=== PATIENT | female | born 1975 | race Caucasian/White ===

== ENCOUNTER 2017-10-12 11:46 | Emergency (ER) | payer BC ==
[2017-10-12] MEDS ORDERED: NA CHLORIDE 0.9% 1,000 ML ONE (12:38)
[2017-10-12] MEDS ORDERED: KETOROLAC 30 MG/ML INJ ONE (12:38)
[2017-10-12 12:44] LABS: Hematocrit 34.3 % (36.0-45.0); RBC Red Blood Cell Count 3.93 M/uL (3.86-4.86)
[2017-10-12 12:45] LABS: Absolute Monocytes 0.5 K/uL (0.1-1.3); Absolute Neutrophil 11.4 K/uL (1.8-8.0); Basophils % 0.3 % (0-1.3); Eosinophils % 0.7 % (0-4.4); Lymphocytes % 7.3 % (15.3-44.8); MCH 28.7 pg (27.0-35.0); MCV 87.3 fL (80-100); MPV 8.1 fL (7.6-11.3)
[2017-10-12 12:57] LABS: Urine Bacteria 20-50 /HPF (<20); Urine Culture Reflex Order REFLEXED; Urine Mucus 1+ /HPF (NONE SEEN); Urine RBC 20-50 /HPF (NONE SEEN)
[2017-10-12 12:57] LABS: ALT/SGPT 23 U/L (12-78); AST/SGOT 20 U/L (15-37); Alkaline Phosphatase 129 U/L (45-117); Amylase Level 20 U/L (25-115); BUN Blood Urea Nitrogen 14 mg/dL (7-18); Bicarbonate 27 mmol/L (21-32); Bilirubin Direct < 0.1 mg/dL (0-0.2); Bilirubin Total 0.2 mg/dL (0.2-1.0); Glucose Level 100 mg/dL (74-106); Lipase 45 U/L (73-393); Potassium 4.1 mmol/L (3.5-5.1); Protein, Total 7.1 g/dL (6.4-8.2); Sodium Level 141 mmol/L (136-145)
[2017-10-12 12:58] LABS: Urine Blood 2+ (NEG); Urine Glucose NEGATIVE (NEG); Urine Protein NEGATIVE (NEG); Urine Specific Gravity >1.030 (1.005-1.030); Urine pH 5.5 (5.0-7.0)
--- NOTE | 2017-10-12 13:57 | RAD REPORT ---
EXAM DESCRIPTION: CT - Abdomen Pelvis W Contrast - 10/12/2017 1:33 pm CLINICAL HISTORY: Left flank pain, history of gastric sleeve procedure COMPARISON: None. TECHNIQUE: Biphasic, helical CT imaging of the abdomen and pelvis was performed following 100 ml non -ionic IV contrast. No oral contrast administered. All CT scans are performed using dose optimization technique as appropriate and may include automated exposure control or mA/KV adjustment according to patient size. FINDINGS: No suspicious findings in the lung bases. The liver and spleen show no suspicious findings. Gallbladder is contracted. Gallstones can be occult . An acute gallbladder process is doubtful. No biliary tree dilatation. There is extensive fatty infi ltration into the pancreatic parenchyma with little pancreatic tissue remaining. Mild left-sided hydronephrosis present. The patient has a duplicated left collecting system. The dupl ication extends to at least the pelvic inlet. A 1-2 millimeter calcification is present at the left U VJ. Both left-sided ureter show mild dilatation indicating that there is a single insertion into the bladder. No right-sided hydronephrosis. No nonobstructing calculi seen. The left-sided stone does not cause si gnificant delay in function on the left. There is an additional 5 millimeter parenchymal calcificatio n on the left. No perinephric stranding. Urinary bladder is fully contracted limiting assessment. No uterine abnormality. Both ovaries are enlarged measuring 6 point 9 x 4.3 on the right and 6.7 x 3. 9 on the left. Both show evidence for multiple cysts. Ovaries are larger than expected for age. As cl inical findings warrant, a followup nonemergent pelvic ultrasound could be performed for further linn acterization. Gastric sleeve surgical changes are noted. Patient has a small hiatal hernia containing approximately 10% of the stomach. No dilated large or small bowel. No acute GI process identifiable. No free air, free fluid or inflammatory stranding. No hernia, mass or bulky lymphadenopathy. No adre nal abnormality. No suspicious bony findings. IMPRESSION: Approximately 1-2 mm left UVJ calculus causing left-sided hydronephrosis. Patient has a duplicated left collecting system to at least the pelvic inlet level. Both ureters show mild hydronephrosis indicating a single common insertion into the bladder. Enlarged ovaries suspected to be multi-cystic. Followup nonemergent pelvic ultrasound could be perfor med for further characterization. Extensive fatty infiltration into the pancreatic parenchyma with little pancreatic tissue still ident ifiable.
[2017-10-12] MEDS ORDERED: AZITHROMYCIN 250 MG TAB ONE (14:19)
[2017-10-12 14:23] LABS: Blood Morphology Comment NOT SEEN (NOT SEEN); Platelet Estimate ADEQ; Urine White Blood Cell Casts OK
--- NOTE | 2017-10-12 14:38 | EDPHYS ---
Physician Documentation [facility] Name: Mitzy Chris Age: 42 yrs Sex: Female : 1975 Arrival Date: 10/12/2017 Time: 11:49 Bed 20 Private MD: None, None ED Physician Avtar Pina HPI: 10/12 12:17 This 42 yrs old Female presents to ER via Wheelchair with complaints of snw Abdominal Pain, Nausea/Vomiting/Diarrhea. 12:17 The patient presents with abdominal pain in the left lower quadrant. Onset: The snw symptoms/episode began/occurred suddenly, 5 day(s) ago, and became persistent. The symptoms do not radiate. Associated signs and symptoms: Pertinent positives: nausea and vomiting, diarrhea. The symptoms are described as crampy, sharp. Severity of pain: At its worst the pain was moderate severe. The patient has not experienced similar symptoms in the past. The patient has been recently seen by a physician: High risk fertility specialist. 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 - Social history:: Smoking status: Patient/guardian denies using tobacco. - Ebola Screening: : Patient negative for fever greater than or equal to 101.5 degrees Fahrenheit, and additional compatible Ebola Virus Disease symptoms Patient denies exposure to infectious person Patient denies travel to an Ebola-affected area in the 21 days before illness onset No symptoms or risks identified at this time. ROS: 12:11 Constitutional: Negative for fever, chills, and weight loss, Eyes: Negative for injury, snw pain, redness, and discharge, ENT: Negative for injury, pain, and discharge, Neck: Negative for injury, pain, and swelling, Cardiovascular: Negative for chest pain, palpitations, and edema, Respiratory: Negative for shortness of breath, cough, wheezing, and pleuritic chest pain, Back: Negative for injury and pain, : Negative for injury, bleeding, discharge, and swelling, MS/Extremity: Negative for injury and deformity, Skin: Negative for injury, rash, and discoloration, Neuro: Negative for headache, weakness, numbness, tingling, and seizure. 12:11 Abdomen/GI: Positive for abdominal pain, nausea, vomiting, diarrhea, of the left lower quadrant. Exam: 12:09 Constitutional: This is a well developed, obese patient who is awake, alert, and in no snw acute distress. Head/Face: Normocephalic, atraumatic. Eyes: Pupils equal round and reactive to light, extra-ocular motions intact. Lids and lashes normal. Conjunctiva and sclera are non-icteric and not injected. Cornea within normal limits. Periorbital areas with no swelling, redness, or edema. ENT: Nares patent. No nasal discharge, no septal abnormalities noted. Tympanic membranes are normal and external auditory canals are clear. Oropharynx with no redness, swelling, or masses, exudates, or evidence of obstruction, uvula midline. Mucous membranes moist. Neck: Trachea midline, no thyromegaly or masses palpated, and no cervical lymphadenopathy. Supple, full range of motion without nuchal rigidity, or vertebral point tenderness. No Meningismus. Chest/axilla: Normal chest wall appearance and motion. Nontender with no deformity. No lesions are appreciated. Cardiovascular: Regular rate and rhythm with a normal S1 and S2. No gallops, murmurs, or rubs. Normal PMI, no JVD. No pulse deficits. Respiratory: Lungs have equal breath sounds bilaterally, clear to auscultation and percussion. No rales, rhonchi or wheezes noted. No increased work of breathing, no retractions or nasal flaring. Back: No spinal tenderness. No costovertebral tenderness. Full range of motion. Skin: Warm, dry with normal turgor. Normal color with no rashes, no lesions, and no evidence of cellulitis. MS/ Extremity: Pulses equal, no cyanosis. Neurovascular intact. Full, normal range of motion. Neuro: Awake and alert, GCS 15, oriented to person, place, time, and situation. Cranial nerves II-XII grossly intact. Motor strength 5/5 in all extremities. Sensory grossly intact. Cerebellar exam normal. Normal gait. Psych: Awake, alert, with orientation to person, place and time. Behavior, mood, and affect are within normal limits. 12:09 Abdomen/GI: Inspection: obese Bowel sounds: normal, Palpation: moderate abdominal tenderness, in the left lower quadrant. Vital Signs: 11:56 BP 132 / 82; Pulse 74; Resp 19; Temp 97.0; Pulse Ox 100% on R/A; Weight 131.54 kg; aj Height 5 ft. 5 in. (165.10 cm); 14:03 BP 121 / 75; Pulse 78; Resp 16; Pulse Ox 100% on R/A; mb3 11:56 Body Mass Index 48.26 (131.54 kg, 165.10 cm) aj MDM: 12:03 Patient medically screened. [facility] 14:45 Data reviewed: vital signs, nurses notes. Data interpreted: Pulse oximetry: on room air snw is 100 %. Interpretation: normal. Counseling: I had a detailed discussion with the patient and/or guardian regarding: the historical points, exam findings, and any diagnostic results supporting the discharge/admit diagnosis, lab results, radiology results, the need for outpatient follow up, to return to the emergency department if symptoms worsen or persist or if there are any questions or concerns that arise at home. Special discussion: Based on the patient's Hx, exam, and Dx evaluation, there is no indication for emergent surgery or inpatient Tx. It is understood by the patient/guardian that if the Sx's persist or worsen they need to return immediately for re-evaluation. Based on the history and exam findings, there is no indication for further emergent testing or inpatient evaluation. I discussed with the patient/guardian the need to see the track rider for further evaluation of the symptoms. I discussed with the patient/guardian the need to see the primary care provider for further evaluation of the symptoms. 10/12 12:17 Order name: Amylase, Serum; Complete Time: 13:00 snw 10/12 12:17 Order name: Basic Metabolic Panel; Complete Time: 13:00 snw 10/12 12:17 Order name: CBC with Diff; Complete Time: 14:27 snw 10/12 12:17 Order name: Creatinine for Radiology; Complete Time: 13:00 snw 10/12 12:17 Order name: Hepatic Function; Complete Time: 13:00 snw 10/12 12:17 Order name: Lipase; Complete Time: 13:00 snw 10/12 12:17 Order name: Urine Microscopic Only; Complete Time: 13:00 snw 10/12 12:17 Order name: CT Abd/Pelvis - W/Contrast; Complete Time: 14:01 snw 10/12 12:28 Order name: Urine Dipstick--Ancillary (enter results); Complete Time: 13:00 ag 10/12 12:28 Order name: Urine --Ancillary (enter results); Complete Time: 13:00 ag 10/12 12:51 Order name: CBC Smear Scan; Complete Time: 14:27 EDMS 10/12 12:59 Order name: Urine Culture EDMS 10/12 12:17 Order name: IV Saline Lock; Complete Time: 12:33 snw 10/12 12:17 Order name: Labs collected and sent; Complete Time: 12:33 snw 10/12 12:17 Order name: Urine Dipstick-Ancillary (obtain specimen); Complete Time: 12:33 snw 10/12 12:17 Order name: Urine Test (obtain specimen); Complete Time: 12:33 snw Administered Medications: 12:40 Drug: NS 0.9% 1000 ml Route: IV; Rate: 1 bolus; Site: right forearm; mb3 14:57 Follow up: Response: No adverse reaction; IV Status: Completed infusion; IV Intake: mb3 1000ml 12:40 Drug: TORadol 30 mg Route: IVP; Site: right forearm; mb3 14:57 Follow up: Response: No adverse reaction mb3 14:09 CANCELLED (other intervention used): Cipro 500 mg PO once snw 14:21 Drug: Zithromax 500 mg Route: PO; mb3 14:57 Follow up: Response: No adverse reaction mb3 Disposition: 17:10 Co-signature as Attending Physician, Avtar Pina MD. rn Disposition: 10/12/17 14:37 Discharged to Home. Impression: Hydronephrosis with renal and ureteral calculous obstruction, Unspecified abdominal pain. - Condition is Stable. - Discharge Instructions: Abdominal Pain, Adult, Kidney Stones, Hydronephrosis, Dietary Guidelines to Help Prevent Kidney Stones. - Prescriptions for Diclofenac Sodium 75 mg Oral Tablet Sustained Release - take 1 tablet by ORAL route 2 times per day; 30 tablet. Zithromax 500 mg Oral Tablet - take 1 tablet by ORAL route once daily for 5 days; 5 tablet. - Work release form, Medication Reconciliation Form, Thank You Letter, Antibiotic Education, Prescription Opioid Use form. - Follow up: Private Physician; When: 1 - 2 days; Reason: Recheck today's complaints, Continuance of care, Re-evaluation by your physician. Follow up: Emergency Department; When: As needed; Reason: Worsening of condition. Signatures: Dispatcher [employer] EDMacy Busch, Davide Alfaro RN, MD MD cha Therrien, Shelly, BOATING SAFETY OFFICER-C BOATING SAFETY OFFICER-Csnw Avtar Pina MD MD rn Barnett, Mark, RN RN mb3 Corrections: (The following items were deleted from the chart) 14:09 14:03 Cipro 500 mg PO once ordered. snw snw 14:39 14:37 10/12/2017 14:37 Discharged to Home. Impression: Hydronephrosis with renal and snw ureteral calculous obstruction. Condition is Stable. Forms are Medication Reconciliation Form, Thank You Letter, Antibiotic Education, Prescription Opioid Use. Follow up: Private Physician; When: 1 - 2 days; Reason: Recheck today's complaints, Continuance of care, Re-evaluation by your physician. Follow up: Emergency Department; When: As needed; Reason: Worsening of condition. snw 14:59 14:39 10/12/2017 14:37 Discharged to Home. Impression: Hydronephrosis with renal and mb3 ureteral calculous obstruction; Unspecified abdominal pain. Condition is Stable. Forms are Medication Reconciliation Form, Thank You Letter, Antibiotic Education, Prescription Opioid Use. Follow up: Private Physician; When: 1 - 2 days; Reason: Recheck today's complaints, Continuance of care, Re-evaluation by your physician. Follow up: Emergency Department; When: As needed; Reason: Worsening of condition. snw
--- NOTE | 2017-10-12 14:38 | ER ---
Nurse's Notes [facility] Name: Mitzy Chris Age: 42 yrs Sex: Female : 1975 Arrival Date: 10/12/2017 Time: 11:49 Bed 20 Private MD: None, None Diagnosis: Hydronephrosis with renal and ureteral calculous obstruction;Unspecified abdominal pain Presentation: 10/12 11:53 Presenting complaint: Patient states: Left flank pain and pelvic pain with nausea that aj started yesterday. Transition of care: patient was not received from another setting of care. Onset of symptoms was October 11, 2017. Risk Assessment: Do you want to hurt yourself or someone else? Patient reports no desire to harm self or others. Initial Sepsis Screen: Does the patient meet any 2 criteria? No. Patient's initial sepsis screen is negative. Does the patient have a suspected source of infection? No. Patient's initial sepsis screen is negative. Care prior to arrival: None. 11:53 Method Of Arrival: Wheelchair 11:53 Acuity: VINAY 3 aj Triage Assessment: 11:56 General: Appears in no apparent distress. uncomfortable, obese, Behavior is calm, aj cooperative, appropriate for age. Pain: Complains of pain in posterior aspect of left lateral abdomen, anterior aspect of left lateral abdomen and pelvis. Neuro: Level of Consciousness is awake, alert, obeys commands, Oriented to person, place, time, situation, Appropriate for age. Respiratory: Airway is patent Respiratory effort is even, unlabored, Respiratory pattern is regular, symmetrical. GI: Abdomen is non-distended, obese, Reports nausea, vomiting. Derm: Skin is intact, is healthy with good turgor, Skin is pink, warm \T\ dry. normal. 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 - Social history:: Smoking status: Patient/guardian denies using tobacco. - Ebola Screening: : Patient negative for fever greater than or equal to 101.5 degrees Fahrenheit, and additional compatible Ebola Virus Disease symptoms Patient denies exposure to infectious person Patient denies travel to an Ebola-affected area in the 21 days before illness onset No symptoms or risks identified at this time. Screenin:32 Abuse screen: Denies threats or abuse. Nutritional screening: No deficits noted. mb3 Tuberculosis screening: No symptoms or risk factors identified. Fall Risk None identified. Assessment: 12:17 General: Appears in no apparent distress. comfortable, Behavior is calm, cooperative, mb3 appropriate for age. Pain: Denies pain. Neuro: No deficits noted. Cardiovascular: No deficits noted. Respiratory: No deficits noted. GI: No deficits noted. Abdomen is obese, Bowel sounds present X 4 quads. Abd is soft and non tender X 4 quads. Reports pt states did have left flank pain that radiated to groin, has since resolved. Did have nausea during pain. No reports now. : Urine is clear. EENT: No signs and/or symptoms were reported regarding the EENT system. Derm: No signs and/or symptoms reported regarding the dermatologic system. 14:03 Reassessment: Patient appears in no apparent distress at this time. Patient and/or mb3 family updated on plan of care and expected duration. Pain level reassessed. Patient is alert, oriented x 3, equal unlabored respirations, skin warm/dry/pink. Vital Signs: 11:56 BP 132 / 82; Pulse 74; Resp 19; Temp 97.0; Pulse Ox 100% on R/A; Weight 131.54 kg; aj Height 5 ft. 5 in. (165.10 cm); 14:03 BP 121 / 75; Pulse 78; Resp 16; Pulse Ox 100% on R/A; mb3 11:56 Body Mass Index 48.26 (131.54 kg, 165.10 cm) aj ED Course: 11:49 Patient arrived in ED. sb2 11:50 None, None is Private Physician. sb2 11:54 Triage completed. aj 11:56 Arm band placed on left wrist. aj 11:59 Alejandrina Hernandez FNP-C is PHCP. snw 11:59 Avtar Pina MD is Attending Physician. snw 12:16 Cade Ortega RN is Primary Nurse. mb3 12:31 Inserted saline lock: 22 gauge in right forearm, using aseptic technique. Blood mb3 collected. 13:33 CT Abd/Pelvis - W/Contrast In Process Unspecified. EDMS 14:21 Urine Culture Sent. mb3 14:21 CBC Smear Scan Sent. mb3 14:58 No provider procedures requiring assistance completed. IV discontinued, intact, mb3 bleeding controlled, No redness/swelling at site. Pressure dressing applied. 14:59 Patient has correct armband on for positive identification. mb3 Administered Medications: 12:40 Drug: NS 0.9% 1000 ml Route: IV; Rate: 1 bolus; Site: right forearm; mb3 14:57 Follow up: Response: No adverse reaction; IV Status: Completed infusion; IV Intake: mb3 1000ml 12:40 Drug: TORadol 30 mg Route: IVP; Site: right forearm; mb3 14:57 Follow up: Response: No adverse reaction mb3 14:09 CANCELLED (other intervention used): Cipro 500 mg PO once snw 14:21 Drug: Zithromax 500 mg Route: PO; mb3 14:57 Follow up: Response: No adverse reaction mb3 Intake: 14:57 IV: 1000ml; Total: 1000ml. mb3 Outcome: 14:37 Discharge ordered by MD. snw 14:58 Discharged to home ambulatory, with family. mb3 14:58 Condition: stable 14:58 Discharge instructions given to patient, family, Instructed on discharge instructions, follow up and referral plans. medication usage, Demonstrated understanding of instructions, follow-up care, medications, Prescriptions given X 2. 14:59 Patient left the ED. mb3 Signatures: Dispatcher [employer] EDMacy Busch, RN RN Alejandrina Fagan, VAULT CLERK-C VAULT CLERK-Csnw Eileen Aguilar sb2 Cade Ortega, RN RN mb3 Corrections: (The following items were deleted from the chart) 12:41 12:31 Inserted saline lock: 22 gauge in left forearm, using aseptic technique. Blood mb3 collected. mb3
== END 2017-10-12 14:59 | disposition home or self-care (01) ==
LOC: ER 11:46
DX: N13.2 Hydronephrosis with renal and ureteral calculous obstruction (principal); E03.9 Hypothyroidism, unspecified; Z88.0 Allergy status to penicillin; Z88.2 Allergy status to sulfonamides
CPT/HCPCS: 36415; 74177; 80048; 80076; 81003; 81015; 81025; 82150; 83690; 85025; 87086; 87088; 96361; 96374; 99284; J7030; Q9967

== ENCOUNTER 2018-02-01 16:28 | Observation (INO) | payer BC ==
[2018-02-01] MEDS ORDERED: FENTANYL CITR 100 MCG/2 ML ONE (17:16)
[2018-02-01 17:36] LABS: Absolute Lymphocytes (CBC) 1.4 K/uL (0.7-4.9); Absolute Monocytes 0.7 K/uL (0.1-1.3); Absolute Neutrophil 8.4 K/uL (1.8-8.0); Basophils % 0.5 % (0-1.3); Eosinophils % 0.5 % (0-4.4); Hematocrit 34.2 % (36.0-45.0); Lymphocytes % 13.4 % (15.3-44.8); MCV 89.5 fL (80-100); MPV 8.1 fL (7.6-11.3); Monocytes % 6.5 % (3.3-12.3); RBC Red Blood Cell Count 3.82 M/uL (3.86-4.86)
--- NOTE | 2018-02-01 18:05 | RAD REPORT ---
EXAM DESCRIPTION: US - Transvaginal OB - 02/01/2018 5:58 pm CLINICAL HISTORY: ABD CRAMPING, COMPARISON: <Comparisons> FINDINGS: Examination quality is quite limited by body habitus. The uterus measures 8.4 x 6.7 x 5.3 cm. Endometrial stripe is mildly thickened measuring 16 mm withou t evidence of IUP. No significant free fluid or adnexal mass seen. Neither ovary was well identified. IMPRESSION: No finding seen to confirm IUP. In the setting of an elevated HCG level, findings would constitute of unknown location. Follow-up interval sonography and serial HCG level measurem ent is advised.
[2018-02-01 18:11] LABS: BUN Blood Urea Nitrogen 8 mg/dL (7-18); Bicarbonate 21 mmol/L (21-32); Glucose Level 120 mg/dL (74-106); HCG, Quantitative 34349 mIU/mL (1-3); Potassium 4.5 mmol/L (3.5-5.1); Sodium Level 140 mmol/L (136-145)
[2018-02-01] MEDS ORDERED: PROMETHAZINE 25 MG/ML VIAL ONE (18:18)
[2018-02-01 18:33] LABS: Urine Blood 1+ (NEG); Urine Glucose NEGATIVE (NEG); Urine Protein NEGATIVE (NEG); Urine pH 7.5 (5.0-7.0)
[2018-02-01] MEDS ORDERED: NA CHLORIDE 0.9% 1,000 ML ONE ×2 (18:45→22:13)
[2018-02-01] MEDS ORDERED: METHYLERGONOVINE 0.2MG/ML AMP IM ONE (18:46)
[2018-02-01 21:07] LABS: Hematocrit 34.9 % (36.0-45.0)
--- NOTE | 2018-02-01 21:24 | ER ---
Nurse's Notes [facility] Name: Mitzy Chris Age: 42 yrs Sex: Female : 1975 Arrival Date: 02/01/2018 Time: 16:42 Bed 25 Private MD: Diagnosis: Spontaneous -incomplete;Anemia, unspecified Presentation: 02/01 16:42 Presenting complaint: Patient states: Vaginal bleeding that started this morning, aj1 reports that she is 8 weeks . States that she went and saw her OB and was diagnosed with a subchorionic bleed. They did an ultrasound and checked and said the baby was doing well and sent the patient home with an order for bed rest. After she got home the bleeding got heavier with clots. Patient reports that she has saturated 10 pads today. Appears pale. Reports cramping pain to suprapubic area. Transition of care: patient was not received from another setting of care. Onset of symptoms was February 01, 2018. Risk Assessment: Do you want to hurt yourself or someone else? Patient reports no desire to harm self or others. Initial Sepsis Screen: Does the patient meet any 2 criteria? No. Patient's initial sepsis screen is negative. Does the patient have a suspected source of infection? No. Patient's initial sepsis screen is negative. Care prior to arrival: None. 16:42 Method Of Arrival: EMS: [facility] 16:42 Acuity: VINAY 2 aj1 Triage Assessment: 16:50 General: Appears in no apparent distress. uncomfortable, Behavior is calm, cooperative, aj1 appropriate for age. Pain: Complains of pain in suprapubic area. Neuro: Level of Consciousness is awake, alert, obeys commands. Cardiovascular: Patient's skin is warm and dry. Respiratory: Airway is patent Respiratory effort is even, unlabored, Respiratory pattern is regular, symmetrical. : Reports vaginal bleeding that is bright red, with clots, heavy flow. 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 - Social history:: Smoking status: Patient/guardian denies using tobacco. - Ebola Screening: : Patient denies travel to an Ebola-affected area in the 21 days before illness onset. Screenin:55 Abuse screen: Denies threats or abuse. Denies injuries from another. Nutritional aj1 screening: No deficits noted. Tuberculosis screening: No symptoms or risk factors identified. 02/02 00:19 Fall Risk None identified. rv Assessment: 02/01 16:55 Obstetrical Assessment: Patient reports vaginal bleeding. General: Appears in no aj1 apparent distress. uncomfortable, Behavior is calm, cooperative, appropriate for age. Pain: Complains of pain in suprapubic area Pain does not radiate. Pain currently is 8 out of 10 on a pain scale. Quality of pain is described as crampy, Is continuous, Aggravated by repositioning. Neuro: Level of Consciousness is awake, alert, obeys commands. Cardiovascular: Patient's skin is warm and dry. Respiratory: Airway is patent Respiratory effort is even, unlabored, Respiratory pattern is regular, symmetrical. GI: No signs and/or symptoms were reported involving the gastrointestinal system. : Reports vaginal bleeding that is bright red, with clots, heavy flow. Derm: Skin is pale. 19:00 Reassessment: Patient appears in no apparent distress at this time. Patient and/or rv family updated on plan of care and expected duration. Pain level reassessed. 21:06 Reassessment: Patient appears in no apparent distress at this time. Patient and/or rv family updated on plan of care and expected duration. Pain level reassessed. 23:25 Reassessment: Patient appears in no apparent distress at this time. Patient and/or rv family updated on plan of care and expected duration. Pain level reassessed. Vital Signs: 16:50 BP 104 / 49; Pulse 67; Resp 18; Temp 97.8; Pulse Ox 97% on R/A; Weight 131.54 kg (R); aj1 Height 5 ft. 5 in. (165.10 cm) (R); Pain 8/10; 17:55 BP 114 / 86; Pulse 68; Resp 20; Pulse Ox 100% on R/A; aj1 18:15 BP 107 / 54; Pulse 70; Resp 23; Pulse Ox 98% on R/A; rv 18:45 BP 100 / 66; Pulse 67; Resp 18; Pulse Ox 100% on R/A; rv 19:15 BP 111 / 61; Pulse 70; Resp 14; Pulse Ox 98% on R/A; rv 19:45 BP 121 / 78; Pulse 74; Resp 14; Pulse Ox 100% on R/A; rv 20:15 BP 129 / 75; Pulse 72; Resp 20; Pulse Ox 100% on R/A; rv 22:45 BP 104 / 67; Pulse 87; Resp 17; Pulse Ox 99% on R/A; rv 23:15 BP 129 / 70; Pulse 70; Resp 15; Pulse Ox 98% on R/A; rv 02/02 00:19 BP 120 / 63; Pulse 77; Resp 16; Pulse Ox 98% on R/A; rv 02/01 16:50 Body Mass Index 48.26 (131.54 kg, 165.10 cm) aj ED Course: 02/01 16:42 Patient arrived in ED. aj1 16:45 Triage completed. aj1 16:50 Arm band placed on Patient placed in an exam room. aj1 16:54 Alejandrina Hernandez FNP-C [facility]. snw 16:54 Davide Arzate MD is Attending Physician. sn 16:55 Selma Rosenberg, DEEPIKA is Primary Nurse. aj1 16:55 Patient has correct armband on for positive identification. Bed in low position. Call [facility] light in reach. Side rails up X 1. 16:55 No provider procedures requiring assistance completed. aj1 17:25 Initial lab(s) drawn, by me, sent to lab. Inserted saline lock: 22 gauge in left sv forearm, using aseptic technique. ,using aseptic technique. diffusics Blood collected. 17:32 Roe cath inserted, using sterile technique, 16 Fr., by me, balloon inflated, to sv gravity drainage, returned clear yellow urine. Patient tolerated poorly. 17:58 US Transvaginal Ob In Process Unspecified. EDMS 19:40 Repeat lab(s) drawn. by me, sent to lab. jp3 19:40 Hematocrit Sent. jp3 19:40 Hemoglobin Sent. jp3 21:16 Mitchel Garza MD is Hospitalizing Provider. [facility] 02/02 00:19 Patient admitted, IV remains in place. intact. rv Administered Medications: 02/01 17:15 Drug: NS 0.9% 1000 ml Route: IV; Rate: 1 bolus; Site: left antecubital; ph 18:48 Follow up: IV Status: Completed infusion; IV Intake: 1000ml aj1 17:25 Drug: fentaNYL (PF) 25 mcg Route: IVP; Site: right antecubital; ph 17:40 Follow up: Response: No adverse reaction; Pain is decreased aj1 17:34 Drug: fentaNYL (PF) 25 mcg Route: IVP; Site: left antecubital; hb 17:40 Follow up: Response: No adverse reaction aj1 18:19 CANCELLED (Duplicate Order): Phenergan 6.25 mg IVP once aj1 18:20 Drug: Phenergan 6.25 mg Route: IVP; Site: right antecubital; aj1 18:50 Follow up: Response: No adverse reaction aj1 18:20 Drug: fentaNYL (PF) 25 mcg Route: IVP; Site: right antecubital; aj1 18:50 Follow up: Response: No adverse reaction aj1 18:46 Drug: fentaNYL (PF) 25 mcg Route: IVP; Site: right forearm; aj1 23:25 Follow up: Response: Pain is decreased rv 18:47 Drug: NS 0.9% 1000 ml Route: IV; Rate: 75 ml/hr; Site: right forearm; aj1 23:26 Follow up: IV Status: Infusion continued upon admission rv 18:47 Drug: METHERgine 0.2 mg Route: IM; Site: left gluteus; aj1 23:26 Follow up: Response: No adverse reaction rv 22:21 CANCELLED (Duplicate Order): Pitocin 20 units IV at 125 ml/hr once charline 22:22 CANCELLED (Duplicate Order): NS 0.9% 1000 ml IV at 150 ml/hr continuous; pitocin 20unitscha Intake: 18:48 IV: 1000ml; Total: 1000ml. aj1 Outcome: 21:23 Decision to Hospitalize by Provider. [facility] 02/02 00:18 Admitted to L \T\ D, accompanied by tech, via stretcher, room 279, with chart, Report rv called to JOSE POE Condition: stable Instructed on the need for admit. 00:26 Patient left the ED. rv Signatures: Dispatcher [employer] Selma Buckley RN RN aj1 Manuela Browning RN Davide Jane MD MD cha Therrien, Shelly, [employer]SC[employer] MAINTENANCE INTERNSHIP-C [employer]AND[employer] MAINTENANCE INTERNS[employer]-Csnw Preethi Simmons RN RN Malini Callejas, RN RN Rosendo Nogueira RN RN rv Ziad Vizcaino jp3 Corrections: (The following items were deleted from the chart) 02/01 17:35 16:42 Acuity: VINAY 3 aj1 aj1
--- NOTE | 2018-02-01 21:24 | EDPHYS ---
Physician Documentation [facility] Name: Mitzy Chris Age: 42 yrs Sex: Female : 1975 Arrival Date: 02/01/2018 Time: 16:42 Bed 25 Private MD: ED Physician Davide Arzate HPI: 02/01 18:01 This 42 yrs old Female presents to ER via EMS with complaints of Vaginal snw Bleeding, + Preg <12wks. 18:01 The patient presents to the emergency department with possible uterine contractions, snw extreme, abdominal pain, of the suprapubic area, described as crampy, vaginal bleeding, that is heavy, reports using 10 pads or tampons per day. The estimated gestational age is 8 weeks. course: care: fertility clinic, Leakage of Fluid: none appreciated, Ultrasound: the patient had an ultrasound, which showed moderate subchorionic bleed. Previous pregnancies: the patient has never been . Associated signs and symptoms: Pertinent positives: abdominal pain, vaginal bleeding. The patient has not experienced similar symptoms in the past. The patient has been recently seen by a physician: Fertility specialist, with similar presenting complaints. 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 - Social history:: Smoking status: Patient/guardian denies using tobacco. - Ebola Screening: : Patient denies travel to an Ebola-affected area in the 21 days before illness onset. ROS: 17:58 Constitutional: Negative for fever, chills, and weight loss, Eyes: Negative for injury, snw pain, redness, and discharge, ENT: Negative for injury, pain, and discharge, Neck: Negative for injury, pain, and swelling, Cardiovascular: Negative for chest pain, palpitations, and edema, Respiratory: Negative for shortness of breath, cough, wheezing, and pleuritic chest pain, Abdomen/GI: Negative for abdominal pain, nausea, vomiting, diarrhea, and constipation, Back: Negative for injury and pain, MS/Extremity: Negative for injury and deformity, Skin: Negative for injury, rash, and discoloration, Neuro: Negative for headache, weakness, numbness, tingling, and seizure, Psych: Negative for depression, anxiety, suicide ideation, homicidal ideation, and hallucinations. 17:58 : Positive for vaginal bleeding, abdominal cramping. Exam: 17:55 Head/Face: Normocephalic, atraumatic. Eyes: Pupils equal round and reactive to light, snw extra-ocular motions intact. Lids and lashes normal. Conjunctiva and sclera are non-icteric and not injected. Cornea within normal limits. Periorbital areas with no swelling, redness, or edema. ENT: Nares patent. No nasal discharge, no septal abnormalities noted. Tympanic membranes are normal and external auditory canals are clear. Oropharynx with no redness, swelling, or masses, exudates, or evidence of obstruction, uvula midline. Mucous membranes moist. Neck: Trachea midline, no thyromegaly or masses palpated, and no cervical lymphadenopathy. Supple, full range of motion without nuchal rigidity, or vertebral point tenderness. No Meningismus. Chest/axilla: Normal chest wall appearance and motion. Nontender with no deformity. No lesions are appreciated. Cardiovascular: Regular rate and rhythm with a normal S1 and S2. No gallops, murmurs, or rubs. Normal PMI, no JVD. No pulse deficits. Respiratory: Lungs have equal breath sounds bilaterally, clear to auscultation and percussion. No rales, rhonchi or wheezes noted. No increased work of breathing, no retractions or nasal flaring. Abdomen/GI: Soft, non-tender, with normal bowel sounds. No distension or tympany. No guarding or rebound. No evidence of tenderness throughout. Back: No spinal tenderness. No costovertebral tenderness. Full range of motion. Skin: Warm, dry with normal turgor. Normal color with no rashes, no lesions, and no evidence of cellulitis. MS/ Extremity: Pulses equal, no cyanosis. Neurovascular intact. Full, normal range of motion. Neuro: Awake and alert, GCS 15, oriented to person, place, time, and situation. Cranial nerves II-XII grossly intact. Motor strength 5/5 in all extremities. Sensory grossly intact. Cerebellar exam normal. Normal gait. Psych: Awake, alert, with orientation to person, place and time. Behavior, mood, and affect are within normal limits. 17:55 Constitutional: The patient appears awake, anxious, obese, pale, active vaginal bleeding Vital Signs: 16:50 BP 104 / 49; Pulse 67; Resp 18; Temp 97.8; Pulse Ox 97% on R/A; Weight 131.54 kg (R); aj1 Height 5 ft. 5 in. (165.10 cm) (R); Pain 8/10; 17:55 BP 114 / 86; Pulse 68; Resp 20; Pulse Ox 100% on R/A; aj1 18:15 BP 107 / 54; Pulse 70; Resp 23; Pulse Ox 98% on R/A; rv 18:45 BP 100 / 66; Pulse 67; Resp 18; Pulse Ox 100% on R/A; rv 19:15 BP 111 / 61; Pulse 70; Resp 14; Pulse Ox 98% on R/A; rv 19:45 BP 121 / 78; Pulse 74; Resp 14; Pulse Ox 100% on R/A; rv 20:15 BP 129 / 75; Pulse 72; Resp 20; Pulse Ox 100% on R/A; rv 22:45 BP 104 / 67; Pulse 87; Resp 17; Pulse Ox 99% on R/A; rv 23:15 BP 129 / 70; Pulse 70; Resp 15; Pulse Ox 98% on R/A; rv 02/02 00:19 BP 120 / 63; Pulse 77; Resp 16; Pulse Ox 98% on R/A; rv 02/01 16:50 Body Mass Index 48.26 (131.54 kg, 165.10 cm) aj Procedures: 02/01 18:59 Performed vaginal exam, + material noted at cervical os, clots removed. snw MDM: 16:54 Patient medically screened. snw 17:54 Data reviewed: vital signs, nurses notes. Data interpreted: Pulse oximetry: on room air snw is 97 %. Interpretation: normal. Counseling: I had a detailed discussion with the patient and/or guardian regarding: the historical points, exam findings, and any diagnostic results supporting the discharge/admit diagnosis, lab results, radiology results. Physician consultation: Davide Arzate MD notify Dr. Garza (construction operations manager OB), Dr. Arzate aware. 17:56 ED course: initial US unable to visualized uterus, reyez placed to decompress bladder, snw + large clots and active vaginal bleeding. Reassessed uterus via US, unable to see any intrauterine contents. 22:28 ED course: pt did not want pitocin, i will stop pitocin.. [facility] 02/01 16:55 Order name: Quantitative Hcg; Complete Time: 18:18 snw 02/01 16:55 Order name: Basic Metabolic Panel; Complete Time: 18:18 snw 02/01 16:55 Order name: CBC with Diff; Complete Time: 17:50 snw 02/01 17:05 Order name: TS; Complete Time: 18:28 snw 02/01 18:23 Order name: Urine Dipstick--Ancillary (enter results); Complete Time: 18:35 bd 02/01 18:23 Order name: Urine --Ancillary (enter results); Complete Time: 18:35 bd 02/01 18:38 Order name: ABO/RH no charge; Complete Time: 18:40 EDMS 02/01 19:04 Order name: Hemoglobin; Complete Time: 21:13 snw 02/01 19:04 Order name: Hematocrit; Complete Time: 21:13 snw 02/01 21:38 Order name: HCG, Quantitative EDAZ 02/01 21:38 Order name: Basic Metabolic Panel EDAZ 02/01 21:38 Order name: Basic Metabolic Panel EDAZ 02/01 21:38 Order name: CBC with Automated Diff EDAZ 02/01 16:55 Order name: Urine Test (obtain specimen); Complete Time: 18:52 snw 02/01 16:55 Order name: IV Saline Lock; Complete Time: 17:25 snw 02/01 17:02 Order name: US Transvaginal Ob; Complete Time: 18:06 snw 02/01 21:38 Order name: NPO EDAZ 02/01 21:38 Order name: CBC with Automated Diff EDAZ 02/01 16:55 Order name: Labs collected and sent; Complete Time: 17:25 snw 02/01 16:55 Order name: NPO; Complete Time: 17:25 snw 02/01 16:55 Order name: Urine Dipstick-Ancillary (obtain specimen); Complete Time: 18:52 snw 02/01 17:10 Order name: PIV: Large bore; Complete Time: 17:34 snw 02/01 17:58 Order name: NPO; Complete Time: 18:03 snw 02/01 18:18 Order name: Pelvic Exam Setup; Complete Time: 18:51 snw Administered Medications: 17:15 Drug: NS 0.9% 1000 ml Route: IV; Rate: 1 bolus; Site: left antecubital; ph 18:48 Follow up: IV Status: Completed infusion; IV Intake: 1000ml aj1 17:25 Drug: fentaNYL (PF) 25 mcg Route: IVP; Site: right antecubital; ph 17:40 Follow up: Response: No adverse reaction; Pain is decreased aj1 17:34 Drug: fentaNYL (PF) 25 mcg Route: IVP; Site: left antecubital; hb 17:40 Follow up: Response: No adverse reaction aj1 18:19 CANCELLED (Duplicate Order): Phenergan 6.25 mg IVP once aj1 18:20 Drug: Phenergan 6.25 mg Route: IVP; Site: right antecubital; aj1 18:50 Follow up: Response: No adverse reaction aj1 18:20 Drug: fentaNYL (PF) 25 mcg Route: IVP; Site: right antecubital; aj1 18:50 Follow up: Response: No adverse reaction aj1 18:46 Drug: fentaNYL (PF) 25 mcg Route: IVP; Site: right forearm; aj1 23:25 Follow up: Response: Pain is decreased rv 18:47 Drug: NS 0.9% 1000 ml Route: IV; Rate: 75 ml/hr; Site: right forearm; aj1 23:26 Follow up: IV Status: Infusion continued upon admission rv 18:47 Drug: METHERgine 0.2 mg Route: IM; Site: left gluteus; aj1 23:26 Follow up: Response: No adverse reaction rv 22:21 CANCELLED (Duplicate Order): Pitocin 20 units IV at 125 ml/hr once charline 22:22 CANCELLED (Duplicate Order): NS 0.9% 1000 ml IV at 150 ml/hr continuous; pitocin 20unitscha Disposition: 21:15 Co-signature as Attending Physician, Davide Arzate MD I agree with the assessment and [facility] plan of care. Disposition: 02/01/18 21:23 Hospitalization ordered by Mitchel Garza for Observation. Preliminary diagnosis are Spontaneous - incomplete, Anemia, unspecified. - Bed [facility]. - Status is Observation. rv - Condition is Stable. - Problem is new. - Symptoms have improved. UTI on Admission? No Signatures: Dispatcher [employer] EDAZ Selma Rosenberg RN RN aj1 Davide Arzate MD MD cha Therrien, Shelly, FUR BLOWING MACHINE ATTENDANT-C FUR BLOWING MACHINE ATTENDANT-Csnw Ashely Marinelli, RN RN bb Preethi Simmons RN RN Malini Callejas, RN RN Rosendo Nogueira, RN RN rv Corrections: (The following items were deleted from the chart) 17:41 16:55 ABO/RH TYPING+BB.LAB.BRZ ordered. EDAZ EDAZ 18:19 18:19 Phenergan 6.25 mg IVP once ordered. aj1 aj1 22:21 21:08 Pitocin 20 units IV at 125 ml/hr once ordered. [facility] 22:22 21:08 NS 0.9% 1000 ml IV at 150 ml/hr continuous; pitocin 20units ordered. [facility] 23:49 21:23 Hospitalization Ordered by Mitchel Garza MD for Observation. Preliminary bb diagnosis is Spontaneous - incomplete; Anemia, unspecified. Bed requested for [facility]. Status is Observation. Condition is Stable. Problem is new. Symptoms have improved. UTI on Admission? No. charline 02/02 00:26 02/01 23:49 02/01/2018 21:23 Hospitalization Ordered by Mitchel Garza MD for rv Observation. Preliminary diagnosis is Spontaneous - incomplete; Anemia, unspecified. Bed requested for [facility]. Status is Observation. Condition is Stable. Problem is new. Symptoms have improved. UTI on Admission? No. bb
[2018-02-01] MEDS ORDERED: ONDANSETRON 4 MG/2 ML VIAL IV PRN (21:31)
[2018-02-01] MEDS ORDERED: MORPHINE 2 MG/ML SYR IV PRN (21:31)
[2018-02-01] MEDS ORDERED: ACETAMINOPHEN 500 MG TAB PO PRN (21:31)
[2018-02-01] MEDS ORDERED: NA CHLORIDE 0.9% 1,000 ML IV SCH ×2 (22:00→23:00)
[2018-02-01] MEDS ORDERED: OXYTOCIN 10 UNIT/ML ML IV ONE (22:13)
[2018-02-02 07:03] LABS: BUN Blood Urea Nitrogen 6 mg/dL (7-18); Bicarbonate 20 mmol/L (21-32); Glucose Level 95 mg/dL (74-106); Potassium 4.4 mmol/L (3.5-5.1); Sodium Level 141 mmol/L (136-145)
[2018-02-02] MEDS ORDERED: MORPHINE 4 MG/ML SYR IV PRN (07:07)
--- NOTE | 2018-02-02 11:14 | PREOPHP ---
Date of Admission: 02/01/2018 A 42-year-old female. This is the 3rd in vitro fertilization attempt for the patient. She was seen apparently within the last 48 hours by her fertility doctor following intrauterine , 8 weeks and a heart beat, but with a subchorionic bleed. Subsequently, patient came in to our emergency roshan m last night with what looks like a complete spontaneous AB. Ultrasound demonstrated just a mildly t hickened endometrium. No signs of intrauterine . The patient has had no heavy bleeding. H er hematocrit has remained stable. Her vital signs are all normal. She has been ambulating without problems. She is Rh positive and therefore will not need RhoGAM. She had a catheterization in the [facility] department because she could not empty her bladder, and I have offered her antibiotic for p rophylactic coverage which she would rather talk to her own physician before she does anything. We w ill let her shower this morning and ambulate, but she wants to go home and I see no reason to keep he r. Her past medical history is significant only for the fact that she has had 3 in vitro fertilization a ttempts with 3 failures. No allergies other than penicillin and sulfa. Vital signs are all normal. Physical exam is done in the emergency room, it is all stable and unchan ged from last night. Diagnosis: First trimester spontaneous , 3rd in vitro fertilization attempt. COLLIN/BARBARA Voice ID: [id number]
--- NOTE | 2018-02-02 14:36 | DS ---
Date of Discharge: 02/02/2018 DISMISSAL SUMMARY A 42-year-old female with spontaneous AB, third in vitro attempt, is Rh positive, therefore will not need RhoGAM. Bleeding is minimal. Vital signs are all stable. The patient has expressed a desire t o go home and see her fertility doctor today which of course we will agree to as long as she can get up and walk around the halls without difficulty. We will give her breakfast this morning and then di smiss her. I have told her I was planning to give her tetracycline twice a day for 3 days for prophy laxis and Cytotec 1 every 4 to 6 hours for about 3 to 4 doses to minimize bleeding, but again she wou ld rather talk to her own physician before she does anything and that is reasonable. Follow up according to patient's desires, but right now, she is stable. Diagnosis: First trimester spontaneous , complete, and 3rd failed in vitro attempt. COLLIN/BARBARA Voice ID: [id number] Report ID: [id number]
== END 2018-02-02 08:05 | disposition home or self-care (01) ==
LOC: ER 16:28 → ERHOLD 21:30 → 2ND-WC 02-02 00:16
PROVIDERS: ADMIT Specialist; ATTEND Specialist
DX: O03.9 Complete or unspecified spontaneous abortion without complication (principal)
CPT/HCPCS: 36415; 51702; 76817; 80048; 81003; 81025; 84702; 85014; 85018; 85025; 86850; 86900; 86901; 96361; 96372; 96374; 96375; 99285; G0378; J2210; J2270; J2550; J2590; J3010; J7030